=== PATIENT | male | born 1955 | race African-American/Black ===

== ENCOUNTER 2017-08-13 17:04 | Inpatient (IN) | payer BC ==
--- NOTE | 2017-08-13 19:40 | ER Document Report ---
ED Medical Screen (RME) - General Chief Complaint: Pedal Edema Stated Complaint: SWELLING IN FEET Time Seen by Provider: 08/13/17 19:33 Notes: 62-year-old male, chief complaint of bilateral lower extremity swelling and worsening dyspnea on exertion for the past several days. States she is just getting over a upper respiratory infection, denies difficulty breathing lying flat. Denies chest pain. Denies fever. Reports recent diagnosis of CHF from [facility], on , pending cardiology follow-up on Saturday. TRAVEL OUTSIDE OF THE [place] IN LAST 30 DAYS: No - Related Data Allergies/Adverse Reactions: No Known Allergies Allergy (Verified 08/13/17 17:07) Past Medical History - Social History Chew tobacco use (# tins/day): No Frequency of alcohol use: None Drug Abuse: None - Past Medical History Cardiac Medical History: Reports: Hx Hypercholesterolemia, Hx Hypertension Renal/ Medical History: Denies: Hx Peritoneal Dialysis Physical Exam - Vital signs Vitals: Temp Pulse Resp BP Pulse Ox 97.7 F 99 26 H 119/88 H 98 08/13/17 17:09 08/13/17 17:09 08/13/17 17:09 08/13/17 17:09 08/13/17 17:09 - Respiratory Respiratory status: No respiratory distress Breath sounds: Normal. No: Decreased air movement, Wheezing - Extremities General lower extremity: Edema - Minimal bilateral edema but equal Course - Vital Signs Vital signs: Temp Pulse Resp BP Pulse Ox 97.7 F 99 26 H 119/88 H 98 08/13/17 17:09 08/13/17 17:09 08/13/17 17:09 08/13/17 17:09 08/13/17 17:09
--- NOTE | 2017-08-13 20:00 | RADIOLOGY REPORT (SQ) ---
EXAM DESCRIPTION: CHEST PA/LAT COMPLETED DATE/TIME: 08/13/2017 7:47 pm REASON FOR STUDY: shortness of breath COMPARISON: None. EXAM PARAMETERS: NUMBER OF VIEWS: two views TECHNIQUE: Digital Frontal and Lateral radiographic views of the chest acquired. RADIATION DOSE: NA LIMITATIONS: none FINDINGS: LUNGS AND PLEURA: The lungs appear clear except for few hazy markings along the left heart border. MEDIASTINUM AND HILAR STRUCTURES: No masses or contour abnormalities. HEART AND VASCULAR STRUCTURES: Borderline heart size. No overt CHF. BONES: No acute findings. HARDWARE: None in the chest. OTHER: No other significant finding. IMPRESSION: The lungs are clear except for few hazy markings along the left heart border. Borderline heart size. TECHNICAL DOCUMENTATION: JOB ID: [id number] [employer]- All Rights Reserved
[2017-08-13 20:44] LABS: ABSOLUTE EOSINOPHILS # (AUTO) 0.1 10^3/uL (0.0-0.6); ABSOLUTE LYMPHOCYTES (AUTO) 2.3 10^3/uL (0.5-4.7); ABSOLUTE MONOCYTES (AUTO) 0.7 10^3/uL (0.1-1.4); ABSOLUTE NEUT (AUTO) 3.6 10^3/uL (1.7-8.2); BASOPHILS % (AUTO) 0.3 % (0-2); EOSINOPHILS % (AUTO) 1.6 % (0-6); HEMATOCRIT 46.5 % (37.9-51.0); HEMOGLOBIN 15.3 g/dL (13.5-17.0); LYMPHOCYTES % (AUTO) 34.6 % (13-45); MEAN CORPUSCULAR HEMOGLOBIN 30.8 pg (27.0-33.4); MEAN CORPUSCULAR VOLUME 93 fl (80-97); PLATELET COUNT 304 10^3/uL (150-450); RED BLOOD COUNT 4.99 10^6/uL (4.35-5.55); RED CELL DISTRIBUTION WIDTH 16.3 % (11.5-14.0); SEGMENTED NEUTROPHILS % (AUTO) 53.5 % (42-78); TOTAL CELLS COUNTED % (AUTO) 100 %; WHITE BLOOD COUNT 6.7 10^3/uL (4.0-10.5)
[2017-08-13 21:12] LABS: CREATINE KINASE MB 6.32 ng/mL (<4.55)
[2017-08-13 21:15] LABS: ALANINE AMINOTRANSFERASE 69 U/L (21-72); ALBUMIN 3.9 g/dL (3.5-5.0); ALKALINE PHOSPHATASE 87 U/L (38-126); ANION GAP 10 (5-19); ASPARTATE AMINO TRANSFERASE 49 U/L (17-59); BILIRUBIN,DIRECT 0.3 mg/dL (0.0-0.4); BILIRUBIN,TOTAL 0.5 mg/dL (0.2-1.3); BLOOD UREA NITROGEN 33 mg/dL (7-20); CALCIUM 9.7 mg/dL (8.4-10.2); CARBON DIOXIDE 29 mmol/L (22-30); CHLORIDE 100 mmol/L (98-107); CREATINE KINASE 227 U/L (55-170); GLUCOSE 109 mg/dL (75-110); POTASSIUM 4.4 mmol/L (3.6-5.0); SODIUM 139.4 mmol/L (137-145); TOTAL PROTEIN 6.6 g/dL (6.3-8.2)
[2017-08-13 21:20] LABS: TROPONIN I 0.046 ng/mL
--- NOTE | 2017-08-13 22:25 | ER Document Report ---
ED General - General Chief Complaint: Pedal Edema Stated Complaint: SWELLING IN FEET Time Seen by Provider: 08/13/17 19:33 Notes: Patient is a 62-year-old male with a past medical history of hypertension, hyperlipidemia, morbid obesity, sleep apnea, and likely CHF who presents with 2- 3 months of progressively worsening shortness of breath that has become much worse in the last 1 week. Patient reports that he is now unable to walk more than 100 feet without being completely out of breath. He states that lying flat worsens his shortness of breath as well. He has been taking furosemide 20 mg twice daily for the past 1 week without any significant improvement in his symptoms. He also notes that he has had increasing bilateral lower extremity edema and has gained approximately 10 pounds in the past 1 week. He is scheduled to see a senior software engineering manager in the next 1 week for regarding these concerns of possible congestive heart failure. However he came to the emergency department tonight because of shortness of breath had gotten to a point where he no longer felt he could wait that long. He denies any history of similar symptoms in the past. He denies chest pain. TRAVEL OUTSIDE OF THE [place] IN LAST 30 DAYS: No - Related Data Allergies/Adverse Reactions: No Known Allergies Allergy (Verified 08/13/17 17:07) Past Medical History - General Information source: Patient - Social History Smoking Status: Never Smoker Chew tobacco use (# tins/day): No Frequency of alcohol use: None Drug Abuse: None Lives with: Spouse/Significant other Family History: Reviewed & Not Pertinent Patient has suicidal ideation: No Patient has homicidal ideation: No - Past Medical History Cardiac Medical History: Reports: Hx Hypercholesterolemia, Hx Hypertension Renal/ Medical History: Denies: Hx Peritoneal Dialysis Review of Systems - Review of Systems Notes: Constitutional: Negative for fever. HENT: Negative for sore throat. Eyes: Negative for visual changes. Cardiovascular: Negative for chest pain. Respiratory: Positive for shortness of breath. Gastrointestinal: Negative for abdominal pain, vomiting or diarrhea. Genitourinary: Negative for dysuria. Musculoskeletal: Positive for bilateral lower extremity edema Skin: Negative for rash. Neurological: Negative for headaches, weakness or numbness. 10 point ROS negative except as marked above and in HPI. Physical Exam - Vital signs Vitals: Temp Pulse Resp BP Pulse Ox 97.7 F 99 26 H 119/88 H 98 08/13/17 17:09 08/13/17 17:09 08/13/17 17:09 08/13/17 17:09 08/13/17 17:09 Interpretation: Tachypneic Notes: PHYSICAL EXAMINATION: GENERAL: Well-appearing, well-nourished and in no acute distress. HEAD: Atraumatic, normocephalic. EYES: Pupils equal round and reactive to light, extraocular movements intact, sclera anicteric, conjunctiva are normal. ENT: nares patent, oropharynx clear without exudates. Moist mucous membranes. NECK: Normal range of motion, supple without lymphadenopathy LUNGS: Slightly diminished at the bases bilaterally. No rhonchi or wheezing HEART: Regular rate and rhythm without murmurs ABDOMEN: Soft, nontender, normoactive bowel sounds. No guarding, no rebound. No masses appreciated. EXTREMITIES: Normal range of motion, 2+ pitting edema in the bilateral lower extremities that is equal and symmetric NEUROLOGICAL: No focal neurological deficits. Moves all extremities spontaneously and on command. PSYCH: Normal mood, normal affect. SKIN: Warm, Dry, normal turgor, no rashes or lesions noted. Course - Re-evaluation Re-evalutation: 08/13/17 22:22 Patient presents with several weeks of progressively worsening shortness of breath on exertion as well as increasing bilateral lower extremity edema. He was recently diagnosed with obstructive sleep apnea but has been unable to tolerate his CPAP. On assessment he denies any complaints other than heaviness in his bilateral lower extremities. He denies any chest pain or shortness of breath while lying in the bed. Chest x-ray does show cardiomegaly and vascular congestion without overt pulmonary edema. Patient's proBNP is elevated. His troponin is mildly elevated at 0.046. EKG with T-wave flattening in the lateral leads. I suspect that this is likely chronic but will repeat a troponin to ensure that there is not a significant upward trend. Patient is scheduled to follow-up with cardiology within the next 5 days for an echocardiogram and additional testing. 08/13/17 23:08 Repeat troponin continues to trend slightly. Given patient's weight gain, pulmonary vascular congestion, trending troponins, abnormal EKG findings, and clinical asymptomatic nature I do not believe he is safe for discharge. IV diuresis has been provided. I have discussed the case with Dr. Guanakito Mclain who is accepted the patient for hospitalization. - Vital Signs Vital signs: Temp Pulse Resp BP Pulse Ox 97.7 F 99 26 H 132/111 H 99 08/14/17 01:32 08/13/17 17:09 08/14/17 01:01 08/14/17 01:01 08/14/17 01:01 - Laboratory Result Diagrams: 08/13/17 20:31 08/13/17 20:31 Laboratory results interpreted by me: 08/13/17 08/13/17 08/13/17 20:31 20:31 20:31 RDW 16.3 H BUN 33 H Creatinine 1.36 H Est GFR (Non-Af Amer) 53 L Creatine Kinase 227 H CK-MB (CK-2) 6.32 H NT-Pro-B Natriuret Pep 1960 H - Diagnostic Test Radiology reviewed: Image reviewed, Reports reviewed Radiology results interpreted by me: 08/13/17 22:23 Chest x-ray: Vascular congestion but no overt pulmonary edema - EKG Interpretation by Me Additional EKG results interpreted by me: 08/13/17 23:08 Normal sinus rhythm. Rate 93. No ST elevations or depressions. T-wave flattening in the lateral leads. QTC is 432. Discharge - Discharge Clinical Impression: Pulmonary vascular congestion, Bilateral lower extremity edema, Shortness of breath CHF (congestive heart failure) Qualifiers: Congestive heart failure type: unspecified congestive heart failure type Congestive heart failure chronicity: unspecified congestive heart failure chronicity Qualified Code(s): I50.9 - Heart failure, unspecified Condition: Fair Disposition: ADMITTED INPATIENT Admitting Provider: Dee Dee Mclain Unit Admitted: Telemetry
[2017-08-13] MEDS ORDERED: ENALAPRILAT DIHYDRATE INJ/PF 1.25 MG/1 ML SDV IV PRN (23:04)
[2017-08-13] MEDS ORDERED: MAGNESIUM HYDROXIDE SUSP 30 ML UDCUP PO PRN (23:04)
[2017-08-13] MEDS ORDERED: ACETAMINOPHEN 325 MG TABLET PO PRN (23:04)
[2017-08-13] MEDS ORDERED: FUROSEMIDE INJ/PF 40 MG/4 ML SDV IV ONE (23:07)
[2017-08-13] MEDS ORDERED: LACTULOSE SYRUP 20 GM/30 ML UDCUP PO ONE (23:09)
[2017-08-14 04:23] LABS: CREATINE KINASE MB 4.97 ng/mL (<4.55); TROPONIN I 0.046 ng/mL
--- NOTE | 2017-08-14 06:41 | PDOC H&P ---
History of Present Illness Admission Date/PCP: 08/13/17 23:21 PERCY CORNELIUS MD Patient complains of: Shortness of breath and edema History of Present Illness: ROXANNE TUCKER is a 62 year old male with past medical history of congestive heart failure, obstructive sleep apnea and hypertension. Patient presents with 4 days of increasing shortness of breath with exertion, orthopnea and lower extremity edema. Patient was treated at [facility], diagnosed with congestive heart failure, obstructive sleep apnea and released earlier this week with initial improvement however worsened despite discharge instructions and medications. He admits chest tightness and shortness of breath with minimal exertion. In the emergency room he has evidence for congestive heart failure exacerbation, receives IV Lasix and referred to the hospitalist for admission. Patient is pain-free Past Medical History Cardiac Medical History: Reports: Congestive Heart Failure, Hyperlipidema, Hypertension Pulmonary Medical History: Reports: Sleep Apnea Social History Information Source: Patient Lives with: Spouse/Significant other Smoking Status: Never Smoker Frequency of Alcohol Use: None Hx Recreational Drug Use: No Drugs: None - Advance Directive Resuscitation Status: Full Code Family History Family History: CAD, Hypertension Parental Family History Reviewed: Yes Children Family History Reviewed: Yes Sibling(s) Family History Reviewed.: Yes Medication/Allergy Allergies/Adverse Reactions: No Known Allergies Allergy (Verified 08/13/17 17:07) Review of Systems Constitutional: PRESENT: as per HPI, fatigue, weakness, weight gain. ABSENT: fever(s), headache(s), night sweats Eyes: ABSENT: visual disturbances Ears: ABSENT: hearing changes Cardiovascular: PRESENT: as per HPI, dyspnea on exertion, edema, orthropnea. ABSENT: chest pain, palpitations Respiratory: PRESENT: as per HPI, dyspnea. ABSENT: cough, sputum Gastrointestinal: ABSENT: abdominal pain, constipation, diarrhea, hematemesis, hematochezia, nausea, vomiting Genitourinary: ABSENT: dysuria, hematuria Musculoskeletal: ABSENT: joint swelling Integumentary: ABSENT: rash, wounds Neurological: ABSENT: abnormal gait, abnormal speech, confusion, dizziness, focal weakness, syncope Psychiatric: ABSENT: anxiety, depression, homidical ideation, suicidal ideation Endocrine: ABSENT: cold intolerance, heat intolerance, polydipsia, polyuria Hematologic/Lymphatic: ABSENT: easy bleeding, easy bruising Physical Exam Vital Signs: Temp Pulse Resp BP Pulse Ox 97.7 F 99 21 H 130/102 H 99 08/14/17 01:32 08/13/17 17:09 08/14/17 06:01 08/14/17 06:01 08/14/17 06:01 General appearance: PRESENT: cooperative, mild distress, morbidly obese Head exam: PRESENT: atraumatic, normocephalic Eye exam: PRESENT: conjunctiva pink, EOMI, PERRLA. ABSENT: scleral icterus Ear exam: PRESENT: normal external ear exam Mouth exam: PRESENT: moist, tongue midline Neck exam: PRESENT: JVD Respiratory exam: PRESENT: accessory muscle use, crackles, symmetrical, tachypnea. ABSENT: clear to auscultation devon, retraction, rhonchi, stridor, wheezes Cardiovascular exam: PRESENT: gallop, RRR, +S2, systolic murmur, tachycardia Pulses: PRESENT: normal dorsalis pedis pul Vascular exam: PRESENT: normal capillary refill GI/Abdominal exam: PRESENT: normal bowel sounds, soft. ABSENT: distended, guarding, mass, organolmegaly, rebound, tenderness Rectal exam: PRESENT: deferred Extremities exam: PRESENT: full ROM, pedal edema, +2 edema, other - Right lower leg and foot warm to touch with mild erythema. ABSENT: calf tenderness, clubbing Neurological exam: PRESENT: alert, awake, oriented to person, oriented to place , oriented to time, oriented to situation, CN II-XII grossly intact. ABSENT: motor sensory deficit Psychiatric exam: PRESENT: appropriate affect, normal mood. ABSENT: homicidal ideation, suicidal ideation Skin exam: PRESENT: dry, intact, warm. ABSENT: cyanosis, rash Results Laboratory Results: 08/14/17 08/14/17 03:48 03:48 Creatine Kinase 210 H CK-MB (CK-2) 4.97 H Troponin I 0.046 Impressions: Chest X-Ray 08/13/17 19:38 IMPRESSION: The lungs are clear except for few hazy markings along the left heart border. Borderline heart size. Assessment & Plan - Diagnosis (1) CHF (congestive heart failure) Qualifiers: Congestive heart failure type: unspecified congestive heart failure type Congestive heart failure chronicity: unspecified congestive heart failure chronicity Qualified Code(s): I50.9 - Heart failure, unspecified Is this a current diagnosis for this admission?: Yes Plan: Telemetry admission, IV diuresis, BiPAP, fluid restriction. Will obtain medical records from [facility] including echo last week. (2) Shortness of breath Is this a current diagnosis for this admission?: Yes Plan: Concern for anginal equivalent given minimal exertion and recent onset will obtain serial cardiac enzymes and regulate stress test (3) Acute venous stasis dermatitis of right lower extremity Is this a current diagnosis for this admission?: Yes Plan: Possible early right lower leg cellulitis consider IV antibiotics fever, erythema or pain develop (4) Bilateral lower extremity edema Is this a current diagnosis for this admission?: Yes Plan: Compression stockings and SCDs - Time Time Spent: 50 to 70 Minutes
[2017-08-14] MEDS: HEPARIN SOD (PORCINE) 5,000 UNIT/ML 1 ML SYRINGE SUBCUT SCH ×3 (07:20→23:34)
[2017-08-14] MEDS ORDERED: INFLUENZA ADLT QUAD (36MOS+) 2017-18 VAC 0.5 ML SYR IM PRN (07:40)
[2017-08-14] MEDS: POTASSIUM CHLORIDE 10 MEQ TABLET.SA PO SCH ×2 (09:18→23:33)
[2017-08-14] MEDS: ASPIRIN 81 MG TABLET, ENT COATED PO SCH (09:18)
[2017-08-14] MEDS: DOCUSATE SODIUM 100 MG CAPSULE PO SCH (09:18)
[2017-08-14] MEDS: FUROSEMIDE INJ/PF 40 MG/4 ML SDV IV SCH ×2 (09:19→23:34)
[2017-08-14] MEDS: NITROGLYCERIN 5 MG (0.2 MG/HR) PATCH.TD24 TD SCH (09:20)
--- NOTE | 2017-08-14 10:32 | EKG REPORT ---
SEVERITY:- ABNORMAL ECG - SINUS RHYTHM FIRST DEGREE AV BLOCK PROBABLE LEFT ATRIAL ABNORMALITY LOW VOLTAGE IN FRONTAL LEADS BORDERLINE R WAVE PROGRESSION, ANTERIOR LEADS NONSPECIFIC T ABNORMALITIES, LATERAL LEADS : Confirmed by: Maryjane Werner 14-Aug-2017 10:31:20
[2017-08-14 11:29] LABS: CREATINE KINASE MB 4.29 ng/mL (<4.55); TROPONIN I 0.037 ng/mL
[2017-08-14 17:17] LABS: CREATINE KINASE MB 3.78 ng/mL (<4.55); TROPONIN I 0.033 ng/mL
[2017-08-14] MEDS ORDERED: GLUCAGON,HUMAN RECOMB 1 MG INJ IM PRN (20:06)
[2017-08-14] MEDS ORDERED: DEXTROSE 40% GEL 15 GM TUBE PO PRN ×2 (20:06)
[2017-08-14] MEDS ORDERED: INSULIN LISPRO 100 UNIT/ML 3 ML VIAL SUBCUT PRN (20:06)
[2017-08-14] MEDS ORDERED: DEXTROSE 50%-WATER 25 GM/50 ML DISP.SYRIN IV PRN ×2 (20:06)
[2017-08-14] MEDS ORDERED: VERAPAMIL HCL 180 MG TABLET.SA PO SCH (22:00)
[2017-08-14] MEDS ORDERED: (PENDING PHARMACY ID) (Valsartan/Hydrochlorothiazide [Diovan Hct 160-12.5 Mg Tab] 1 TAB) PO SCH (22:00)
[2017-08-14] MEDS ORDERED: (PENDING PHARMACY ID) (Rosuvastatin Calcium [Crestor 20 Mg Tablet] 20 MG) PO SCH (22:00)
[2017-08-14] MEDS: ATORVASTATIN CALCIUM 40 MG TABLET PO SCH (23:32)
[2017-08-14] MEDS: VALSARTAN 160 MG TABLET PO SCH (23:34)
[2017-08-14] MEDS: HYDROCHLOROTHIAZIDE 12.5 MG CAPSULE PO SCH (23:34)
[2017-08-15] MEDS: HEPARIN SOD (PORCINE) 5,000 UNIT/ML 1 ML SYRINGE SUBCUT SCH ×3 (06:24→21:54)
[2017-08-15] MEDS: HYDROCHLOROTHIAZIDE 12.5 MG CAPSULE PO SCH ×2 (09:31→21:53)
[2017-08-15] MEDS: NITROGLYCERIN 5 MG (0.2 MG/HR) PATCH.TD24 TD SCH (09:36)
[2017-08-15] MEDS: DOCUSATE SODIUM 100 MG CAPSULE PO SCH (09:36)
[2017-08-15] MEDS: ASPIRIN 81 MG TABLET, ENT COATED PO SCH (09:36)
[2017-08-15] MEDS: MULTIVITAMIN TABLET PO SCH (09:36)
[2017-08-15] MEDS: VALSARTAN 160 MG TABLET PO SCH ×2 (09:37→21:53)
[2017-08-15] MEDS: POTASSIUM CHLORIDE 10 MEQ TABLET.SA PO SCH ×2 (09:37→21:53)
[2017-08-15] MEDS: FUROSEMIDE INJ/PF 40 MG/4 ML SDV IV SCH ×2 (09:37→21:54)
--- NOTE | 2017-08-15 17:46 | PDOC PROGRESS REPORT ---
Subjective Progress Note for:: 08/14/17 Subjective:: Patient feels better he has no chest pain minimal shortness of breath No abdominal pain nausea vomiting He has been diuresing he is alert awake Reason For Visit: SALVATORE, MORBID OBSEITY, HEART FAILURE, ANASARCA Physical Exam Vital Signs: Temp Pulse Resp BP Pulse Ox 97.9 F 95 20 126/94 H 99 08/15/17 16:16 08/15/17 16:16 08/15/17 16:16 08/15/17 16:16 08/15/17 16:16 Intake & Output 08/14/17 08/15/17 08/16/17 00:59 00:59 00:59 Intake Total 1752 Output Total 1050 3300 Balance -1050 -1548 Weight 140.2 kg 140.5 kg General appearance: PRESENT: cooperative, mild distress, morbidly obese Head exam: PRESENT: atraumatic, normocephalic Eye exam: PRESENT: conjunctiva pink, EOMI, PERRLA. ABSENT: scleral icterus Ear exam: PRESENT: normal external ear exam Mouth exam: PRESENT: moist, tongue midline Neck exam: PRESENT: JVD Respiratory exam: PRESENT: accessory muscle use, crackles, symmetrical, tachypnea. ABSENT: clear to auscultation devon, retraction, rhonchi, stridor, wheezes Cardiovascular exam: PRESENT: gallop, RRR, +S2, systolic murmur, tachycardia Pulses: PRESENT: normal dorsalis pedis pul Vascular exam: PRESENT: normal capillary refill GI/Abdominal exam: PRESENT: normal bowel sounds, soft. ABSENT: distended, guarding, mass, organolmegaly, rebound, tenderness Results Laboratory Results: 08/14/17 08/14/17 08/14/17 03:48 03:48 10:39 Creatine Kinase 210 H 181 H CK-MB (CK-2) 4.97 H Troponin I 0.046 08/14/17 08/14/17 08/14/17 10:39 16:25 16:25 Creatine Kinase 164 CK-MB (CK-2) 4.29 3.78 Troponin I 0.037 0.033 EKG Comments: SINUS RHYTHM [1AVB] . FIRST DEGREE AV BLOCK [PLAA] . PROBABLE LEFT ATRIAL ABNORMALITY [LVOLF] . LOW VOLTAGE IN FRONTAL LEADS [AMI1] . BORDERLINE R WAVE PROGRESSION, ANTERIOR LEADS [T1LA] . NONSPECIFIC T ABNORMALITIES, LATERAL LEADS Impressions: Chest X-Ray 08/13/17 19:38 IMPRESSION: The lungs are clear except for few hazy markings along the left heart border. Borderline heart size. Assessment & Plan - Diagnosis (1) CHF (congestive heart failure) Qualifiers: Congestive heart failure type: unspecified congestive heart failure type Congestive heart failure chronicity: unspecified congestive heart failure chronicity Qualified Code(s): I50.9 - Heart failure, unspecified Is this a current diagnosis for this admission?: Yes Plan: Patient's shortness of breath has improved; he has been diuresing He has lost about 6 pounds in couple days we will schedule him for Echocardiogram in a.m. to evaluate the left ventricular function Continue the present management (2) SALVATORE (obstructive sleep apnea) Is this a current diagnosis for this admission?: Yes Plan: Patient does have his CPAP unfortunately does not wear it To call sleep center in a.m. as he feels that the pressure is too high We will get an appointment for CPAP settings to be readjusted (3) Exertional angina Is this a current diagnosis for this admission?: Yes Plan: His cardiac enzymes in the intermediate range Patient is scheduled for stress test in a.m. (4) Hyperlipidemia Qualifiers: Hyperlipidemia type: unspecified Qualified Code(s): E78.5 - Hyperlipidemia , unspecified Is this a current diagnosis for this admission?: Yes (5) Hypertension Qualifiers: Hypertension type: essential hypertension Qualified Code(s): I10 - Essential (primary) hypertension Is this a current diagnosis for this admission?: Yes Plan: Controlled - Time Time Spent with patient: 15-24 minutes
--- NOTE | 2017-08-15 17:57 | PDOC PROGRESS REPORT ---
Subjective Progress Note for:: 08/15/17 Subjective:: Patient is very comfortable he did not have any further chest pains Reason For Visit: SALVATORE, MORBID OBSEITY, HEART FAILURE, ANASARCA Physical Exam Vital Signs: Temp Pulse Resp BP Pulse Ox 97.9 F 95 20 126/94 H 99 08/15/17 16:16 08/15/17 16:16 08/15/17 16:16 08/15/17 16:16 08/15/17 16:16 Intake & Output 08/14/17 08/15/17 08/16/17 00:59 00:59 00:59 Intake Total 1752 Output Total 1050 3300 Balance -1050 -1548 Weight 140.2 kg 140.5 kg General appearance: PRESENT: no acute distress, well-developed, well-nourished Head exam: PRESENT: atraumatic, normocephalic Eye exam: PRESENT: conjunctiva pink, EOMI, PERRLA. ABSENT: scleral icterus Ear exam: PRESENT: normal external ear exam Mouth exam: PRESENT: moist, tongue midline Neck exam: ABSENT: carotid bruit, JVD, lymphadenopathy, thyromegaly Respiratory exam: PRESENT: clear to auscultation devon. ABSENT: rales, rhonchi, wheezes Cardiovascular exam: PRESENT: RRR. ABSENT: diastolic murmur, rubs, systolic murmur Pulses: PRESENT: normal dorsalis pedis pul Vascular exam: PRESENT: normal capillary refill GI/Abdominal exam: PRESENT: normal bowel sounds, soft. ABSENT: distended, guarding, mass, organolmegaly, rebound, tenderness Rectal exam: PRESENT: deferred Extremities exam: PRESENT: full ROM. ABSENT: calf tenderness, clubbing, pedal edema Neurological exam: PRESENT: alert, awake, oriented to person, oriented to place , oriented to time, oriented to situation, CN II-XII grossly intact. ABSENT: motor sensory deficit Psychiatric exam: PRESENT: appropriate affect, normal mood. ABSENT: homicidal ideation, suicidal ideation Skin exam: PRESENT: dry, intact, warm. ABSENT: cyanosis, rash Results Laboratory Results: 08/14/17 08/14/17 08/14/17 03:48 03:48 10:39 Creatine Kinase 210 H 181 H CK-MB (CK-2) 4.97 H Troponin I 0.046 0108/14/17 08/14/17 10:39 16:25 16:25 Creatine Kinase 164 CK-MB (CK-2) 4.29 3.78 Troponin I 0.037 0.033 Impressions: Chest X-Ray 08/13/17 19:38 IMPRESSION: The lungs are clear except for few hazy markings along the left heart border. Borderline heart size. Assessment & Plan - Diagnosis (1) CHF (congestive heart failure) Qualifiers: Congestive heart failure type: unspecified congestive heart failure type Congestive heart failure chronicity: unspecified congestive heart failure chronicity Qualified Code(s): I50.9 - Heart failure, unspecified Is this a current diagnosis for this admission?: Yes (2) SALVATORE (obstructive sleep apnea) Is this a current diagnosis for this admission?: Yes (3) Exertional angina Is this a current diagnosis for this admission?: Yes (4) Hyperlipidemia Qualifiers: Hyperlipidemia type: unspecified Qualified Code(s): E78.5 - Hyperlipidemia , unspecified Is this a current diagnosis for this admission?: Yes (5) Hypertension Qualifiers: Hypertension type: essential hypertension Qualified Code(s): I10 - Essential (primary) hypertension Is this a current diagnosis for this admission?: Yes - Time Time Spent with patient: 25-34 minutes - Plan Summary Plan Summary: Continue present management echo and stress test in a.m. Continue to monitor Patient is extremely stable Fasting lipid profile and hemoglobin A1c in a.m.
[2017-08-15] MEDS: ATORVASTATIN CALCIUM 40 MG TABLET PO SCH (21:53)
[2017-08-16 06:11] LABS: CHOLESTEROL 110.34 mg/dL (0-200); TRIGLYCERIDES 76 mg/dL (<150)
[2017-08-16 06:21] LABS: DIRECT LDL 47 mg/dL (<100)
[2017-08-16] MEDS: HEPARIN SOD (PORCINE) 5,000 UNIT/ML 1 ML SYRINGE SUBCUT SCH ×2 (06:44→14:15)
[2017-08-16 10:02] LABS: ANION GAP 11 (5-19); BLOOD UREA NITROGEN 25 mg/dL (7-20); CALCIUM 10.1 mg/dL (8.4-10.2); CARBON DIOXIDE 26 mmol/L (22-30); CHLORIDE 102 mmol/L (98-107); GLUCOSE 126 mg/dL (75-110); MAGNESIUM 1.9 mg/dL (1.6-2.3); POTASSIUM 4.1 mmol/L (3.6-5.0); SODIUM 139.1 mmol/L (137-145)
[2017-08-16] MEDS: VALSARTAN 160 MG TABLET PO SCH (13:48)
[2017-08-16] MEDS: FUROSEMIDE INJ/PF 40 MG/4 ML SDV IV SCH (13:48)
[2017-08-16] MEDS: POTASSIUM CHLORIDE 10 MEQ TABLET.SA PO SCH (13:48)
[2017-08-16] MEDS: MULTIVITAMIN TABLET PO SCH (14:12)
--- NOTE | 2017-08-16 14:13 | Physician Advisory Note ---
Physician Advisor ProgressNote .: Pursuant to the plan for Blanca Ingram, I have reviewed the medical record for this patient. Physician Advisor Statement: Please consider documenting, if you agree: 1. "Acute on Chronic CHF" (systolic? diastolic? ...) 2. Please avoid using verbiage such as "pt is stable" when pt still needs to be in hospital. - Payers will say, "Pt was 'extremely stable', so why did dr still keep pt in hospital? Stable pts have no need for hospital care.... This pt should have been managed from office, so we will not pay for this hospital day/admission.... " Alternative documentation options: "Pt is not currently requiring ICU care ", "Sufficiently improved for floor bed", "No further decompensation", "Pt not in acute distress at present", .... Thanks! CK
[2017-08-16] MEDS: DOCUSATE SODIUM 100 MG CAPSULE PO SCH (14:15)
[2017-08-16] MEDS: ASPIRIN 81 MG TABLET, ENT COATED PO SCH (14:15)
[2017-08-16] MEDS: NITROGLYCERIN 5 MG (0.2 MG/HR) PATCH.TD24 TD SCH (14:16)
[2017-08-16] MEDS ORDERED: REGADENOSON INJ 0.4 MG/5 ML DISP.SYRIN IV ONE (14:30)
[2017-08-16 16:47] VITALS: BP 132/98
--- NOTE | 2017-08-16 17:00 | XCELERA REPORT ---
[address] [address] Transthoracic Echocardiogram Report Name: ROXANNE TUCKER Age: 62 yrs Gender: Male : 1955 Patient Status: Inpatient Patient Location: [address] [place] [address] Study Date: 08/16/2017 09:53 AM Height: 74 in Weight: 309 lb BSA: 2.6 m2 Procedure: A two-dimensional transthoracic echocardiogram with color flow and Doppler was performed. Study Quality: Technically suboptimal. The study was technically difficult with many images being suboptimal in quality. Reason For Study: CHF History: CHF. Ordering Physician: MARY BAH Performed By: Ilda Dunbar Interpretation Summary CHF There is mild LVH.The LV is signicantly dilated. LV EF is 25% Left ventricular systolic function is severely reduced. LV diastolic function not assessed. LV apex not well seen.There probably is in a setting of severe global hypokinesis increased hypokinesis of the LV apex. No obvios thrombus. The right ventricle is not well visualized secondary to technical limitations The left atrium is mildly dilated. There is no evidence of mitral valve prolapse. There is no mitral valve stenosis. There is a mild amount of mitral regurgitation There is no aortic valve stenosis There is no LVOT obstruction. No aortic regurgitation is present. There is no tricuspid stenosis. There is a mild amount of tricuspid regurgitation Mild to moderate pulmonary hypertension.RVSP is 46 to 51 mm of Hg , with RA mean of 15 to 20. The inferior vena cava appeared dilated and decreased < 50% with respiration (RAP 15-20 mmHg) There is no pericardial effusion. MMode/2D Measurements & Calculations RVDd: 5.0 cm LVIDd: 5.9 cm FS: 11.9 % Ao root diam: 3.0 cm IVSd: 1.3 cm LVIDs: 5.2 cm EDV(Teich): 174.0 ml LVPWd: 1.2 cm ESV(Teich): 130.0 ml Ao root area: 7.2 cm2 EF(Teich): 25.3 % LA dimension: 4.2 cm Doppler Measurements & Calculations MV E max ryne: MV P1/2t max ryne: Ao V2 max: LV V1 max P.4 cm/sec 86.9 cm/sec 77.4 cm/sec 0.77 mmHg MV P1/2t: 44.1 msec Ao max PG: LV V1 max: 2.4 mmHg 43.9 cm/sec MVA(P1/2t): 5.0 cm2 MV dec slope: 577.4 cm/sec2 PA V2 max: PI end-d ryne: TR max ryne: 67.6 cm/sec 191.4 cm/sec 278.3 cm/sec PA max PG: TR max P.8 mmHg 31.0 mmHg Left Ventricle There is mild LVH.The LV is signicantly dilated. LV EF is 25%. Left ventricular systolic function is severely reduced. LV diastolic function not assessed. LV apex not well seen.There probably is in a setting of severe global hypokinesis increased hypokinesis of the LV apex. No obvios thrombus. Right Ventricle The right ventricle is not well visualized secondary to technical limitations. Atria The right atrium is normal. The left atrium is mildly dilated. Mitral Valve There is no evidence of mitral valve prolapse. There is no vegetation seen on the mitral valve. There is no mitral valve stenosis. There is a mild amount of mitral regurgitation. Aortic Valve There is no aortic valvular vegetation. There is no aortic valve stenosis. There is no LVOT obstruction. No aortic regurgitation is present. Tricuspid Valve There is no tricuspid stenosis. There is a mild amount of tricuspid regurgitation. Mild to moderate pulmonary hypertension.RVSP is 46 to 51 mm of Hg , with RA mean of 15 to 20. Pulmonic Valve There is no pulmonic valvular stenosis. There is a trace amount of pulmonic regurgitation. Great Vessels The aortic root is not well visualized. The inferior vena cava appeared dilated and decreased < 50% with respiration (RAP 15-20 mmHg). Effusions There is no pericardial effusion. : MARY BAH > [place]
[2017-08-16] MEDS ORDERED: CARVEDILOL 6.25 MG TABLET PO ONE (19:00)
--- NOTE | 2017-08-17 07:27 | PDOC DISCHARGE SUMMARY ---
General - Admit/Disc Date/PCP Admission Date/Primary Care Provider: 08/13/17 23:21 PERCY CORNELIUS MD Discharge Date: 08/16/17 - Discharge Diagnosis (1) CHF (congestive heart failure) Is this a current diagnosis for this admission?: Yes (2) SALVATORE (obstructive sleep apnea) Is this a current diagnosis for this admission?: Yes (3) Exertional angina Is this a current diagnosis for this admission?: Yes (4) Hyperlipidemia Is this a current diagnosis for this admission?: Yes (5) Hypertension Is this a current diagnosis for this admission?: Yes - Additional Information Resuscitation Status: Full Code Discharge Diet: Cardiac Discharge Activity: Activity As Tolerated, Balance Activity w/Rest, Weigh Daily Prescriptions: Carvedilol [Coreg 6.25 mg Tablet] 6.25 mg PO Q12 #60 tablet Potassium Chloride [Klor-Con 10 Meq Tablet.sa] 20 meq PO Q12 30 Days #60 tablet.sa Valsartan [Diovan 160 mg Tablet] 160 mg PO Q12 30 Days #60 tablet Home Medications: Aspirin [Aspirin EC] 81 mg PO DAILY 08/14/17 Multivitamin [Tab-A-Delta (Multiple Vitamin) Tablet] 1 tab PO DAILY 08/14/17 Rosuvastatin Calcium [Crestor 20 mg Tablet] 20 mg PO QHS 08/14/17 Sitagliptin Phos/Metformin HCl [Janumet 50-1,000 mg Tablet] 1 tab PO Q12 Carvedilol [Coreg 6.25 mg Tablet] 6.25 mg PO Q12 #60 tablet 08/16/17 Potassium Chloride [Klor-Con 10 Meq Tablet.sa] 20 meq PO Q12 30 Days #60 tablet.sa 08/16/17 Valsartan [Diovan 160 mg Tablet] 160 mg PO Q12 30 Days #60 tablet 08/16/17 History of Present Illness Patient complains of: SOB exertional CP History of Present Illness: ROXANNE TUCKER is a 62 year old male with past medical history of congestive heart failure, obstructive sleep apnea and hypertension. Patient presents with 4 days of increasing shortness of breath with exertion, orthopnea and lower extremity edema. Patient was treated at [facility], diagnosed with congestive heart failure, obstructive sleep apnea and released earlier this week with initial improvement however worsened despite discharge instructions and medications. He admits chest tightness and shortness of breath with minimal exertion. In the emergency room he has evidence for congestive heart failure exacerbation, receives IV Lasix and referred to the hospitalist for admission. Patient is pain-free Hospital Course Hospital Course: (1) CHF (congestive heart failure) Qualifiers: Congestive heart failure type: unspecified congestive heart failure type Congestive heart failure chronicity: unspecified congestive heart failure chronicity Qualified Code(s): I50.9 - Heart failure, unspecified Is this a current diagnosis for this admission?: Yes Echocardiogram was performed EF was 25% patient was treated with Lasix IV and diuresed Dyspnea improved Patient was monitered he remained in sinus tachycardia Beta blockers were deferred until after stress test troponins remained in intermediate range there was no evidence of an acute coronary syndrome Stress test was performed prior to discharge; It was negative for reversible ischemia (2) SALVATORE (obstructive sleep apnea) Is this a current diagnosis for this admission?: Yes [facility] (3) Exertional angina Is this a current diagnosis for this admission?: Yes patient had no reccurent CP during his hospital stay (4) Hyperlipidemia Qualifiers: Hyperlipidemia type: unspecified Qualified Code(s): E78.5 - Hyperlipidemia , unspecified Is this a current diagnosis for this admission?: Yes (5) Hypertension Qualifiers: Hypertension type: essential hypertension Qualified Code(s): I10 - Essential (primary) hypertension Is this a current diagnosis for this admission?: Yes was controlled Patient was referred to his physical science technician at discharge for close follow up (he has an appointment next week ) Physical Exam Vital Signs: Temp Pulse Resp BP Pulse Ox 97.5 F 108 H 16 132/98 H 96 08/16/17 15:56 08/16/17 19:00 08/16/17 15:56 08/16/17 15:56 08/16/17 15:56 Intake & Output 08/16/17 08/17/17 08/18/17 00:59 00:59 00:59 Intake Total 1752 880 Output Total 3300 2000 Balance -1548 -1120 Weight 140.5 kg 140.2 kg General appearance: PRESENT: no acute distress, well-developed, well-nourished Head exam: PRESENT: atraumatic, normocephalic Eye exam: PRESENT: conjunctiva pink, EOMI, PERRLA. ABSENT: scleral icterus Ear exam: PRESENT: normal external ear exam Mouth exam: PRESENT: moist, tongue midline Neck exam: ABSENT: carotid bruit, JVD, lymphadenopathy, thyromegaly Respiratory exam: PRESENT: clear to auscultation devon. ABSENT: rales, rhonchi, wheezes Cardiovascular exam: PRESENT: RRR. ABSENT: diastolic murmur, rubs, systolic murmur Pulses: PRESENT: normal dorsalis pedis pul Vascular exam: PRESENT: normal capillary refill GI/Abdominal exam: PRESENT: normal bowel sounds, soft. ABSENT: distended, guarding, mass, organolmegaly, rebound, tenderness Rectal exam: PRESENT: deferred Extremities exam: PRESENT: full ROM. ABSENT: calf tenderness, clubbing, pedal edema Neurological exam: PRESENT: alert, awake, oriented to person, oriented to place , oriented to time, oriented to situation, CN II-XII grossly intact. ABSENT: motor sensory deficit Psychiatric exam: PRESENT: appropriate affect, normal mood. ABSENT: homicidal ideation, suicidal ideation Skin exam: PRESENT: dry, intact, warm. ABSENT: cyanosis, rash Results Laboratory Results: 08/16/17 04:52 08/16/17 04:52 Sodium 139.1 Potassium 4.1 Chloride 102 Carbon Dioxide 26 Anion Gap 11 BUN 25 H Creatinine 1.12 Est GFR ( Amer) > 60 Est GFR (Non-Af Amer) > 60 Glucose 126 H Calcium 10.1 Magnesium 1.9 08/14/17 08/14/17 08/14/17 03:48 03:48 10:39 Creatine Kinase 210 H 181 H CK-MB (CK-2) 4.97 H Troponin I 0.046 08/14/17 08/14/17 08/14/17 10:39 16:25 16:25 Creatine Kinase 164 CK-MB (CK-2) 4.29 3.78 Troponin I 0.037 0.033 Impressions: Chest X-Ray 08/13/17 19:38 IMPRESSION: The lungs are clear except for few hazy markings along the left heart border. Borderline heart size. Plan Discharge Plan: discharge home follow up with cardiology on Saturday Time Spent: Greater than 30 Minutes
== END 2017-08-16 20:11 | disposition home or self-care (01) | DRG 293 ==
LOC: ER 17:04 → EH 23:21 → 4S 08-14 14:41
PROVIDERS: ADMIT Internal Medicine; ATTEND Internal Medicine
DX: I11.0 Hypertensive heart disease with heart failure (principal); I50.9 Heart failure, unspecified; I20.8 Other forms of angina pectoris; I87.2 Venous insufficiency (chronic) (peripheral); G47.33 Obstructive sleep apnea (adult) (pediatric); E66.01 Morbid (severe) obesity due to excess calories; Z68.39 Body mass index [BMI] 39.0-39.9, adult
CPT/HCPCS: 36415; 71046; 78452; 80048; 80053; 80061; 82550; 82553; 82962; 83036; 83735; 83880; 84443; 84484; 85025; 93005; 93010; 93017; 93306; 94660; 99285; A9500; J1644; J1940; J2785; J3490; Q9969